=== PATIENT | male | born 1970 | race Two or more races ===

== ENCOUNTER 2017-05-12 13:16 | Observation (INO) | payer MEDICAID ==
[~2017-05-12] VITALS: Ht 162.6 cm; Wt 88.5 kg
[2017-05-12] MEDS ORDERED: SODIUM CHLORIDE 0.9% 1,000 ML IVB ONE (13:27)
[2017-05-12 14:42] LABS: Basophils # (auto) 0 uL; Basophils % (auto) 0.3 % (0.0-2.0); CONDITION Y; DEFINITIVE SEE PRINTOUT; Eosinophils # (auto) 0.3 uL; Eosinophils % (auto) 2.1 % (0.0-7.0); Hematocrit 42.6 % (41.0-53.0); Hemoglobin 14.3 g/dL (13.5-17.5); Lymphocytes # (auto) 2.4 uL; Lymphocytes % (auto) 19.5 % (10.0-50.0); Mean Corpuscular Hemoglobin 37.2 pg (28.0-32.0); Mean Corpuscular Hgb Conc. 33.6 g/dL (32.0-36.0); Mean Corpuscular Volume 110.8 fL (80.0-100.0); Mean Platelet Volume 10.6 fL (7.4-10.4); Monocytes # (auto) 0.9 uL; Monocytes % (auto) 7.3 % (0.0-12.0); Neutrophils # (auto) 8.7 uL; Neutrophils % (auto) 70.8 % (37.0-80.0); Platelet Count (auto) 219 10^3/uL (140-450); Red Cell Distribution Width 14.8 % (11.6-16.0); SUSPECT SEE PRINTOUT; White Blood Cell 12.2 10^3/uL (4.4-10.8)
[2017-05-12] MEDS ORDERED: MORPHINE SULF INJ 2 MG/ML SYRINGE 1ML IV ONE (14:45)
[2017-05-12] MEDS ORDERED: ONDANSETRON HCL 4 MG/2 ML VIAL IV ONE ×3 (14:45→22:15)
[2017-05-12 14:55] LABS: INR 1.55 (0.9-1.15); Partial Thromboplastin Time 38.4 sec (22.64-33.71)
[2017-05-12 15:03] LABS: Albumin 3.7 g/dL (3.4-5.0); BUN/Creatinine Ratio 12.5; Calcium 9.1 mg/dL (8.5-10.1); Potassium 3.6 mmol/L (3.5-5.1)
[2017-05-12 15:05] LABS: Bilirubin, Total 8.8 mg/dL (0.2-1.0); Total Protein 9.6 g/dL (6.4-8.2)
[2017-05-12] MEDS ORDERED: HYDROmorphone HCL 2 MG/ML VL IV ONE ×2 (17:00→22:15)
[2017-05-12] MEDS ORDERED: SODIUM CHLORIDE 0.9% 500 ML IV ONE (19:45)
[2017-05-12 19:48] LABS: Urine Blood Negative /uL (Negative); Urine Ca Oxalate Crystal MOD (None Seen); Urine Color Brown (Yellow); Urine Glucose Normal (Normal); Urine Hyaline Cast FEW /lpf (0 - 2); Urine Ketone Negative (Negative); Urine Mucus FEW (None Seen); Urine Nitrite Negative (Negative); Urine RBC 60 /hpf (0 - 3); Urine Squamous Epithelial Cell FEW /hpf (<5); Urine Urobilinogen Normal (Negative); Urine pH 5.5 (5.0-8.0)
[2017-05-12 19:54] LABS: Urine Bilirubin 1+ (Negative)
[2017-05-12 21:17] VITALS: BP 126/74
== END 2017-05-12 22:30 | disposition left against medical advice (07) ==
LOC: EDBD 13:16 → ER 13:16 → OVERFLOW 13:28 → ER 22:30
PROVIDERS: ADMIT Family Medicine; ATTEND Family Medicine
DX: K74.60 Unspecified cirrhosis of liver (principal); K85.90 Acute pancreatitis without necrosis or infection, unspecified; K80.20 Calculus of gallbladder without cholecystitis without obstruction; F17.210 Nicotine dependence, cigarettes, uncomplicated; Z86.19 Personal history of other infectious and parasitic diseases
CPT/HCPCS: 36415; 71010; 74176; 76700; 80053; 81001; 82140; 82150; 83605; 83690; 83735; 85025; 85610; 85730; 87040; 93005; 96361; 96374; 96375; 96376; 99291; G0378; J1170; J2270; J2405